=== PATIENT | male | born 1970 | race Caucasian/White ===

== ENCOUNTER → 2019-11-16 10:27 | Outpatient (BNVA) | payer MEDICARE, SELFPAY | PROVIDERS: Visit Provider Nurse Practitioner Family | DX: R10.9 Unspecified abdominal pain (principal); R39.9 Unspecified symptoms and signs involving the genitourinary system; I10 Essential (primary) hypertension; R35.1 Nocturia; R39.11 Hesitancy of micturition; J44.9 Chronic obstructive pulmonary disease, unspecified; F32.9 Major depressive disorder, single episode, unspecified; J30.2 Other seasonal allergic rhinitis; Z23 Encounter for immunization; F17.200 Nicotine dependence, unspecified, uncomplicated; G47.33 Obstructive sleep apnea (adult) (pediatric); Z12.11 Encounter for screening for malignant neoplasm of colon | CPT/HCPCS: 80053; 80061; 81003; 84153; 85025; 87086 ==

== ENCOUNTER → 2019-11-23 13:12 | Outpatient (BNVA) | payer MEDICARE, SELFPAY | PROVIDERS: PCP Nurse Practitioner Family; Visit Provider Anesthesiology | DX: G89.29 Other chronic pain (principal); M50.020 Cervical disc disorder with myelopathy, mid-cervical region, unspecified level; M48.02 Spinal stenosis, cervical region; M48.061 Spinal stenosis, lumbar region without neurogenic claudication; M54.16 Radiculopathy, lumbar region; M79.651 Pain in right thigh; M79.652 Pain in left thigh; F17.210 Nicotine dependence, cigarettes, uncomplicated; Z79.891 Long term (current) use of opiate analgesic; Z71.6 Tobacco abuse counseling | CPT/HCPCS: 99214 ==

== ENCOUNTER → 2019-12-28 14:57 | Outpatient (BNVA) | payer MEDICARE, SELFPAY | PROVIDERS: PCP Nurse Practitioner Family; Visit Provider Nurse Practitioner Family | DX: M25.552 Pain in left hip (principal) | CPT/HCPCS: 73502 ==

== ENCOUNTER 2019-12-30 12:36 | Outpatient (CLI) | payer MEDICARE, SELFPAY ==
--- NOTE | 2019-12-30 13:12 | MR_ITS ---
WS: [id number] MRI of the lumbar spine, with and without IV contrast, 12/30/2019 Clinical Data: Lumbar Pain Comparison: MRI lumbar spine, 03/16/2019. Findings: Degenerative disc narrowing at L5-S1 is seen. There is also disc narrowing at T12-L1. The spinal cord ends posterior to the T12 vertebral body. No compression fractures are seen. There is a left L5 lami nectomy unchanged. No abnormal contrast enhancement of any structure occurs. L1-L2: No canal stenosis, disc bulge or foraminal narrowing is seen. L2-L3: No canal stenosis, disc bulge or foraminal narrowing is seen. L3-L4: No canal stenosis, disc bulge or foraminal narrowing is seen. L4-L5: There is facet joint hypertrophy with a small central protruding disc causing canal and forami nal stenosis. L5-S1: There is a small central disc but the laminectomy relieves any central canal stenosis. MR/MR lumbar spine wo/w con [id number] Impression: 1. Degenerative disc narrowing at L5-S1 with left laminectomy. 2. Facet joint hypertrophy and central protruding disc causing mild canal and f oraminal stenosis at L4-L5.
--- NOTE | 2019-12-30 13:45 | XR_ITS ---
WS: [id number] Lumbar spine with flexion, extension, and neutral lateral, 12/30/2019 Clinical Data: Lumbar Pain Comparison: Lateral lumbar spine, 03/16/2019. Findings: No compression fractures or subluxation is seen. There is degenerative disc narrowing at L5-S1. Anter ior osteoarthritic change is seen at L4 and L5. No limitation of motion or subluxation is seen on flexion or extension.. There are clips in the right upper quadrant from a cholecystectomy. There are calcifications overlyin g the L3 vertebral body which may be in the kidney. There is a large amount of fecal material through out the colon. XR/XR lumbar spine f/e only [id number] Impression: 1. Negative for limitation of motion or subluxation on flexion or extension. 2. Osteoarthritis at L4-L5. 3. Degenerative disc at L5-S1.
== END 2019-12-30 12:37 | disposition home or self-care (01) ==
LOC: RADWPI 13:10
PROVIDERS: PCP Nurse Practitioner Family; Visit Provider Specialist
DX: M48.061 Spinal stenosis, lumbar region without neurogenic claudication (principal); M54.16 Radiculopathy, lumbar region; M47.897 Other spondylosis, lumbosacral region
CPT/HCPCS: 72120; 72158; A9579

== ENCOUNTER → 2020-01-23 10:46 | Outpatient (BNVA) | payer MEDICARE, SELFPAY | PROVIDERS: PCP Nurse Practitioner Family; Visit Provider Urology | DX: N40.0 Benign prostatic hyperplasia without lower urinary tract symptoms (principal) | CPT/HCPCS: 81001 ==

== ENCOUNTER → 2020-02-26 16:29 | Outpatient (BNVA) | payer MEDICARE, SELFPAY | PROVIDERS: PCP Nurse Practitioner Family; Visit Provider Nurse Practitioner | DX: M79.645 Pain in left finger(s) (principal) | CPT/HCPCS: 73130 ==

== ENCOUNTER → 2020-03-07 14:17 | Outpatient (BNVA) | payer MEDICARE, SELFPAY | PROVIDERS: PCP Nurse Practitioner Family; Visit Provider Nurse Practitioner | DX: G89.29 Other chronic pain (principal); M54.9 Dorsalgia, unspecified; M50.020 Cervical disc disorder with myelopathy, mid-cervical region, unspecified level; F17.210 Nicotine dependence, cigarettes, uncomplicated; Z79.891 Long term (current) use of opiate analgesic; Z71.6 Tobacco abuse counseling | CPT/HCPCS: 99213; 99214 ==

== ENCOUNTER → 2020-05-18 09:12 | Outpatient (BNVA) | payer MEDICARE, SELFPAY | PROVIDERS: PCP Nurse Practitioner Family; Visit Provider Nurse Practitioner | DX: G89.29 Other chronic pain (principal); M48.061 Spinal stenosis, lumbar region without neurogenic claudication; M54.16 Radiculopathy, lumbar region; M54.9 Dorsalgia, unspecified; M50.020 Cervical disc disorder with myelopathy, mid-cervical region, unspecified level; F17.210 Nicotine dependence, cigarettes, uncomplicated; Z79.891 Long term (current) use of opiate analgesic; Z71.6 Tobacco abuse counseling | CPT/HCPCS: 99213; 99214 ==

== ENCOUNTER → 2020-05-28 11:35 | Outpatient (BNVA) | payer MEDICARE, SELFPAY | PROVIDERS: PCP Nurse Practitioner Family; Visit Provider Nurse Practitioner Family | DX: I10 Essential (primary) hypertension (principal); J44.9 Chronic obstructive pulmonary disease, unspecified; J30.2 Other seasonal allergic rhinitis; F32.9 Major depressive disorder, single episode, unspecified; F17.200 Nicotine dependence, unspecified, uncomplicated; G47.33 Obstructive sleep apnea (adult) (pediatric); R39.11 Hesitancy of micturition; Z12.11 Encounter for screening for malignant neoplasm of colon; R73.9 Hyperglycemia, unspecified | CPT/HCPCS: 80053; 80061; 83036; 84443; 85025 ==

== ENCOUNTER → 2020-06-21 08:58 | Outpatient (BNVA) | payer MEDICARE, SELFPAY | PROVIDERS: PCP Nurse Practitioner Family; Visit Provider Nurse Practitioner Family | DX: R30.0 Dysuria (principal) | CPT/HCPCS: 81000 ==

== ENCOUNTER → 2020-07-18 07:52 | Outpatient (BNVA) | payer MEDICARE, SELFPAY | PROVIDERS: PCP Nurse Practitioner Family; Visit Provider Anesthesiology | DX: G89.29 Other chronic pain (principal); M50.020 Cervical disc disorder with myelopathy, mid-cervical region, unspecified level; M48.02 Spinal stenosis, cervical region; M54.9 Dorsalgia, unspecified; F17.210 Nicotine dependence, cigarettes, uncomplicated; Z98.890 Other specified postprocedural states; Z79.891 Long term (current) use of opiate analgesic; Z71.6 Tobacco abuse counseling | CPT/HCPCS: 99214 ==

== ENCOUNTER → 2020-08-07 11:56 | Outpatient (BNVA) | payer MEDICARE, SELFPAY | PROVIDERS: PCP Nurse Practitioner Family; Visit Provider Nurse Practitioner Family | DX: Z11.59 Encounter for screening for other viral diseases (principal) | CPT/HCPCS: 87635 ==

== ENCOUNTER → 2020-09-13 08:47 | Outpatient (BNVA) | payer MEDICARE, SELFPAY | PROVIDERS: PCP Nurse Practitioner Family; Visit Provider Anesthesiology | DX: G89.29 Other chronic pain (principal); M54.41 Lumbago with sciatica, right side; M54.9 Dorsalgia, unspecified; M48.061 Spinal stenosis, lumbar region without neurogenic claudication; M54.16 Radiculopathy, lumbar region; M50.020 Cervical disc disorder with myelopathy, mid-cervical region, unspecified level; M48.02 Spinal stenosis, cervical region; Z79.891 Long term (current) use of opiate analgesic; F17.210 Nicotine dependence, cigarettes, uncomplicated; Z71.6 Tobacco abuse counseling | CPT/HCPCS: 99214 ==

== ENCOUNTER → 2020-11-27 08:03 | Outpatient (BNVA) | payer MEDICARE, SELFPAY | PROVIDERS: PCP Nurse Practitioner Family; Visit Provider Anesthesiology | DX: G89.29 Other chronic pain (principal); M50.020 Cervical disc disorder with myelopathy, mid-cervical region, unspecified level; M48.02 Spinal stenosis, cervical region; M48.061 Spinal stenosis, lumbar region without neurogenic claudication; M54.16 Radiculopathy, lumbar region; M54.9 Dorsalgia, unspecified; F17.210 Nicotine dependence, cigarettes, uncomplicated; Z79.891 Long term (current) use of opiate analgesic | CPT/HCPCS: 99214 ==

== ENCOUNTER → 2021-01-23 08:55 | Outpatient (BNVA) | payer MEDICARE, SELFPAY | PROVIDERS: PCP Nurse Practitioner Family; Visit Provider Anesthesiology | DX: G89.29 Other chronic pain (principal); M54.9 Dorsalgia, unspecified; M48.061 Spinal stenosis, lumbar region without neurogenic claudication; M54.16 Radiculopathy, lumbar region; M48.02 Spinal stenosis, cervical region; M50.020 Cervical disc disorder with myelopathy, mid-cervical region, unspecified level; F17.210 Nicotine dependence, cigarettes, uncomplicated; Z98.890 Other specified postprocedural states; Z79.891 Long term (current) use of opiate analgesic | CPT/HCPCS: 99214 ==

== ENCOUNTER → 2021-03-28 13:54 | Outpatient (BNVA) | payer MEDICARE, SELFPAY | PROVIDERS: PCP Nurse Practitioner Family; Visit Provider Anesthesiology | DX: G89.29 Other chronic pain (principal); M54.41 Lumbago with sciatica, right side; M48.061 Spinal stenosis, lumbar region without neurogenic claudication; M54.16 Radiculopathy, lumbar region; M54.9 Dorsalgia, unspecified; M50.020 Cervical disc disorder with myelopathy, mid-cervical region, unspecified level; M48.02 Spinal stenosis, cervical region; F17.210 Nicotine dependence, cigarettes, uncomplicated; Z98.890 Other specified postprocedural states; Z79.891 Long term (current) use of opiate analgesic | CPT/HCPCS: 99214 ==

== ENCOUNTER → 2021-05-21 13:25 | Outpatient (BNVA) | payer MEDICARE, SELFPAY | PROVIDERS: PCP Nurse Practitioner Family; Visit Provider Anesthesiology | DX: G89.29 Other chronic pain (principal); M54.41 Lumbago with sciatica, right side; M48.02 Spinal stenosis, cervical region; M50.020 Cervical disc disorder with myelopathy, mid-cervical region, unspecified level; M48.061 Spinal stenosis, lumbar region without neurogenic claudication; M54.16 Radiculopathy, lumbar region; F17.210 Nicotine dependence, cigarettes, uncomplicated; Z98.890 Other specified postprocedural states; Z79.891 Long term (current) use of opiate analgesic | CPT/HCPCS: 99214 ==

== ENCOUNTER → 2021-05-27 10:01 | Outpatient (BNVA) | payer MEDICARE, SELFPAY | PROVIDERS: PCP Nurse Practitioner Family; Visit Provider Nurse Practitioner Family | DX: I10 Essential (primary) hypertension (principal) | CPT/HCPCS: 80053; 80061; 84443; 85025 ==

== ENCOUNTER → 2021-07-16 09:42 | Outpatient (BNVA) | payer MEDICARE, SELFPAY | PROVIDERS: PCP Nurse Practitioner Family; Visit Provider Anesthesiology | DX: G89.29 Other chronic pain (principal); M50.020 Cervical disc disorder with myelopathy, mid-cervical region, unspecified level; M48.02 Spinal stenosis, cervical region; M48.061 Spinal stenosis, lumbar region without neurogenic claudication; M54.16 Radiculopathy, lumbar region; F17.210 Nicotine dependence, cigarettes, uncomplicated; Z98.890 Other specified postprocedural states; Z79.891 Long term (current) use of opiate analgesic | CPT/HCPCS: 99214 ==

== ENCOUNTER → 2021-10-23 09:34 | Outpatient (BNVA) | payer MEDICARE, SELFPAY | PROVIDERS: PCP Nurse Practitioner Family; Visit Provider Anesthesiology | DX: G89.29 Other chronic pain (principal); Z20.822 Contact with and (suspected) exposure to COVID-19; M50.020 Cervical disc disorder with myelopathy, mid-cervical region, unspecified level; M48.02 Spinal stenosis, cervical region; M48.061 Spinal stenosis, lumbar region without neurogenic claudication; M54.16 Radiculopathy, lumbar region; Z98.890 Other specified postprocedural states | CPT/HCPCS: 87635; 99214 ==

== ENCOUNTER → 2021-10-29 16:15 | Outpatient (BNVA) | payer MEDICARE, SELFPAY | PROVIDERS: PCP Nurse Practitioner Family; Visit Provider Nurse Practitioner Family | DX: R52 Pain, unspecified (principal); R05.9 Cough, unspecified | CPT/HCPCS: 80053; 84443; 85025; 85379 ==

== ENCOUNTER → 2021-12-06 10:54 | Outpatient (BNVA) | payer MEDICARE, SELFPAY | PROVIDERS: PCP Nurse Practitioner Family; Visit Provider Nurse Practitioner Family | DX: I10 Essential (primary) hypertension (principal); R35.1 Nocturia; J30.2 Other seasonal allergic rhinitis; F32.9 Major depressive disorder, single episode, unspecified; J44.9 Chronic obstructive pulmonary disease, unspecified; Z20.822 Contact with and (suspected) exposure to COVID-19 | CPT/HCPCS: 80053; 80061; 84443; 85025; 87635 ==

== ENCOUNTER 2021-12-11 06:04 | Day surgery (SDC) | payer MEDICARE, SELFPAY ==
[2021-10-01 12:14] VITALS: BMI 27.4
[2021-12-06 09:41] VITALS: BMI 28.2
[2021-12-11 06:30] VITALS: BP 112/63; PULSE 87; RESP 18; TEMP 36.7; O2SAT 97
[2021-12-11] MEDS: sodium chloride 0.9% 1,000 ML 30 ML IV (06:40)
--- NOTE | 2021-12-11 06:54 | W.PM.OPSFHP ---
Same Day Surgery H&P Indication for Procedure/HPI DATE OF PROCEDURE: December 11, 2021 CHIEF COMPLAINT/INDICATIONFOR SURGICAL PROCEDURE: colonoscopy PREOP DIAGNOSIS: diagnostic PLANNED PROCEDURE: Operation Date: 12/11/21 07:30 Proposed Procedures p Colonoscopy 46337 z12.11(Not Applicable) - Javier Mills MD Medications/Allergies* Allergies/Adverse Reactions Allergy/AdvReac Type Severity Reaction Status Date / Time No Known Allergies Allergy Verified 12/06/21 10:57 Current Medications: Generic Name Dose Route Start Last Admin Trade Name Freq PRN Reason Stop Dose Admin Sodium Chloride 1,000 mls @ 30 mls/hr 12/11/21 06:15 12/11/21 06:40 Sodium Chloride 0.9% IV 12/12/21 06:14 30 mls/hr .Q24H ROBERT Administration Pertinent History/Comorbid Conditions* Medical History (Updated 03/07/20 @ 14:45 by RAINE Gusman) Anxiety BPH (benign prostatic hyperplasia) BPH w/o urinary obs/LUTS Cervical disc disorder with myelopathy, mid-cervical region, unspecified level Cervical stenosis of spine Chronic back pain greater than 3 months duration COPD (chronic obstructive pulmonary disease) DDD (degenerative disc disease) Depression Encounter for long-term opiate analgesic use Erectile dysfunction Essential hypertension Incomplete bladder emptying Nocturia Obstructive sleep apnea Seasonal allergies Spinal stenosis of lumbar region with radiculopathy Urinary urgency Surgical History (Updated 01/10/20 @ 12:59 by Sagar Alexander MD) History of cholecystectomy History of lumbar surgery Bilateral L5-S1 hemilaminotomy/discectomy/foraminotomy, 09/10/2016 Family History (Updated 10/10/19 @ 11:59 by Elisabeth Duvall LPN) CAD (coronary artery disease) Father Social History Smoking and tobacco status: current every day smoker cigarettes Packs smoked per day: 1 Quit status (tobacco): considering quitting Alcohol intake: never Lives independently: Yes Household members: spouse Marital status: Current occupational status: retired and disabled History of recent travel: No Pertinent Exam Findings alert, oriented x 3 and regular rate & rhythm Recommendations Surgery/Procedure today Coding Level of Care Code Acute Hospice Coordinator for Adinag Andreina
--- NOTE | 2021-12-11 06:57 | ANES.PREANE2 ---
Pre-Anesthetic Assessment Height/Weight: Height 1.68 m Weight 79.379 kg Temp Pulse Resp BP Pulse Ox 98.1 F 87 18 112/63 97 12/11/21 06:30 12/11/21 06:30 12/11/21 06:30 12/11/21 06:30 12/11/21 06:30 Preop Diagnosis: diagnostic Operation Date: 12/11/21 07:30 Proposed Procedures p Colonoscopy 62135 z12.11(Not Applicable) - Javier Mills MD Familial anesthetic complications: none Was Beta Poncho taken within 24 hours: N/A Was Clonidine taken within 24 hours: N/A Last intake: Intake Last Liquid Date 12/10/21 Last Liquid Time 23:30 Last Solid Date 12/10/21 Last Solid Time 07:00 Social Tobacco and No alcohol 1 pack(s) per day Exam alert, oriented x 3, clear to auscultation bilaterally and regular rate & rhythm Airway Submandibular: within normal limits Cervical ROM: within normal limits Mallampati: Class I Comments: Comments: missing Pulmonary Chronic Obstructive Pulmonary Disease, Exertional Dyspnea and Sleep Apnea CV/HEM Hypertension None reported Hepatic None reported GI None reported Metabolic None reported Musc/skel Lower Back Pain Neuropsych Anxiety Anesthetic Plan ASA status: 2 Anesthesia: MAC Risk of > 500 ml blood loss (7ml/kg in children): No Medications/Allergies Home Medications Medication Instructions Recorded Confirmed Last Taken Type albuterol sulfate 90 mcg/actuation 2 puff INHALATION Q6H PRN 30 Days 05/28/20 12/06/21 12/08/21 Rx aerosol inhaler (ProAir HFA) #6.7 gm compressor, for nebulizer #1 each 07/20/20 12/09/21 12/10/21 Rx nebulizer accessories #1 each 07/20/20 12/09/21 12/10/21 Rx Disposable nebulizer circuit #1 ea 10/22/21 12/09/21 12/10/21 Rx albuterol sulfate 2.5 mg (3 mL) INHALATION Q4H PRN 10/22/21 12/06/21 12/08/21 Rx 30 Days #75 ml oxycodone 15 mg tablet 15 mg PO TID PRN 30 Days #90 tab 10/23/21 12/06/21 12/08/21 Rx budesonide-formoterol HFA 160 2 puff INHALATION BID 30 Days #1 12/06/21 12/09/21 12/08/21 Rx mcg-4.5 mcg/actuation aerosol each inhaler (Symbicort) bupropion HCl 150 mg 24 hr tablet, 150 mg PO QAM 30 Days #30 tab 12/06/21 12/09/21 12/10/21 Rx extended release (Wellbutrin XL) lisinopril 20 mg tablet 20 mg PO DAILY 30 Days #30 tab 12/06/21 12/09/21 12/10/21 Rx montelukast 10 mg tablet 10 mg PO DAILY 30 Days #30 tab 12/06/21 12/09/21 12/10/21 Rx tamsulosin 0.4 mg capsule 0.4 mg PO BID 30 Days #60 cap 12/06/21 12/11/21 12/10/21 Rx prednisone 20 mg tablet 20 mg PO BID #6 tab 12/09/21 12/09/21 12/10/21 Rx Allergies Allergy/AdvReac Type Severity Reaction Status Date / Time No Known Allergies Allergy Verified 12/06/21 10:57 Current Medications Generic Name Dose Route Start Last Admin Trade Name Freq PRN Reason Stop Dose Admin Sodium Chloride 1,000 mls @ 30 mls/hr 12/11/21 06:15 12/11/21 06:40 Sodium Chloride 0.9% IV 12/12/21 06:14 30 mls/hr .Q24H ROBERT Administration PFSH Anesthesia Medical History Anxiety BPH (benign prostatic hyperplasia) BPH w/o urinary obs/LUTS Cervical disc disorder with myelopathy, mid-cervical region, unspecified level Cervical stenosis of spine Chronic back pain greater than 3 months duration COPD (chronic obstructive pulmonary disease) DDD (degenerative disc disease) Depression Encounter for long-term opiate analgesic use Erectile dysfunction Essential hypertension Incomplete bladder emptying Nocturia Obstructive sleep apnea Seasonal allergies Spinal stenosis of lumbar region with radiculopathy Urinary urgency Surgical History History of cholecystectomy History of lumbar surgery Bilateral L5-S1 hemilaminotomy/discectomy/foraminotomy, 09/10/2016 Family History Father CAD (coronary artery disease) Mother No problems noted. Social History Smoking and tobacco status: current every day smoker cigarettes Packs smoked per day: 1 Quit status (tobacco): considering quitting Alcohol intake: never Lives independently: Yes Household members: spouse Marital status: Current occupational status: retired and disabled History of recent travel: No Data Anesthesia Cardiac Studies: No Data to Display
[2021-12-11 07:51] VITALS: BP 90/60; PULSE 75; RESP 18; TEMP 36.2; O2SAT 92
--- NOTE | 2021-12-11 08:03 | ANE.PACU2 ---
Inpatient post-anesthesia follow up: Airway intact: Yes Vital signs: Temperature 97.2 F Pulse Rate 75 Respiratory Rate 18 Blood Pressure 90/60 Pulse Oximetry 92 Oxygen Delivery Me thod Room Air Oxygen Flow Rate Fraction of Inspir ed Oxygen Hydration adequate: Yes Nausea and vomiting: No Pain level: 1 Mental status: Baseline
[2021-12-11 08:10] VITALS: BP 104/68; PULSE 80; RESP 18; O2SAT 96
== END 2021-12-11 08:25 | disposition home or self-care (01) ==
PROVIDERS: PCP Nurse Practitioner Family; Visit Provider Surgery
PROC: 0DJD8ZZ Inspection of Lower Intestinal Tract, Via Natural or Artificial Opening Endoscopic (ICD-10-PCS; CPT 45378; principal; 2021-12-11 07:30)
DX: Z12.11 Encounter for screening for malignant neoplasm of colon (principal); K64.8 Other hemorrhoids; F41.9 Anxiety disorder, unspecified; N40.1 Benign prostatic hyperplasia with lower urinary tract symptoms; N13.8 Other obstructive and reflux uropathy; J44.9 Chronic obstructive pulmonary disease, unspecified; I10 Essential (primary) hypertension; G47.33 Obstructive sleep apnea (adult) (pediatric); F17.210 Nicotine dependence, cigarettes, uncomplicated
CPT/HCPCS: 45378; J2370; J2704; J7030

== ENCOUNTER → 2022-05-22 14:37 | Outpatient (BNVA) | payer MEDICARE, SELFPAY | PROVIDERS: PCP Nurse Practitioner Family; Visit Provider Nurse Practitioner Family | DX: I10 Essential (primary) hypertension (principal); N52.9 Male erectile dysfunction, unspecified; Z12.5 Encounter for screening for malignant neoplasm of prostate; R53.83 Other fatigue; R35.1 Nocturia; J44.9 Chronic obstructive pulmonary disease, unspecified; F32.9 Major depressive disorder, single episode, unspecified; J30.2 Other seasonal allergic rhinitis | CPT/HCPCS: 80053; 80061; 84403; 84443; 85025; G0103 ==

== ENCOUNTER 2022-06-16 15:49 | Outpatient (CLI) | payer MEDICARE, SELFPAY ==
--- NOTE | 2022-06-16 15:56 | XR_ITS ---
WS: [id number] XR ribs RT mn 3V w CXR1V [id number] REASON FOR EXAM: rib injury FINDINGS: The heart and mediastinum are within normal limits. Calcified granulomatous disease bilaterally. No right rib fractures are identified. XR/XR ribs RT mn 3V w CXR1V [id number] IMPRESSION: No acute abnormality.
--- NOTE | 2022-06-16 15:56 | XR_ITS ---
WS: [id number] XR shoulder RT min 2V* [id number] REASON FOR EXAM: right shoulder injury FINDINGS: No fracture or focal bone lesion. Mild changes of osteoarthritis in the acromioclavicular joint with mild joint space narrowing and sub chondral sclerosis and small marginal osteophytes. Mild narrowing of the joint space with mild subchondral sclerosis and cystic change in the glenoid. N o significant change compared to 01/04/2019. Compared to previous examination of 01/04/2019 there is incr eased sclerosis and subchondral cystic change in the rotator cuff tendon insertion on the greater tub erosity. XR/XR shoulder RT min 2V* [id number] IMPRESSION: Moderate rotator cuff tendon arthropathy which has progressed compared to the e xamination of 01/04/2019.
== END 2022-06-16 15:50 | disposition home or self-care (01) ==
LOC: RAD 15:51
PROVIDERS: PCP Nurse Practitioner Family; Visit Provider Emergency Medicine
DX: S49.91XA Unspecified injury of right shoulder and upper arm, initial encounter (principal); S29.9XXA Unspecified injury of thorax, initial encounter; X58.XXXA Exposure to other specified factors, initial encounter; M12.811 Other specific arthropathies, not elsewhere classified, right shoulder
CPT/HCPCS: 71101; 73030

== ENCOUNTER → 2022-09-09 07:48 | Outpatient (BNVA) | payer MEDICARE, SELFPAY | PROVIDERS: PCP Nurse Practitioner Family; Visit Provider Nurse Practitioner Family | DX: J44.9 Chronic obstructive pulmonary disease, unspecified (principal) | CPT/HCPCS: 80053 ==

== ENCOUNTER → 2022-09-23 14:49 | Outpatient (BNVA) | payer MEDICARE, SELFPAY | PROVIDERS: PCP Nurse Practitioner Family; Visit Provider Nurse Practitioner Family | DX: J06.9 Acute upper respiratory infection, unspecified (principal) | CPT/HCPCS: 87400 ==

== ENCOUNTER → 2022-11-18 10:02 | Outpatient (BNVA) | payer MEDICARE, SELFPAY | PROVIDERS: PCP Nurse Practitioner Family; Visit Provider Nurse Practitioner Family | DX: I10 Essential (primary) hypertension (principal); Z12.5 Encounter for screening for malignant neoplasm of prostate | CPT/HCPCS: 80053; 80061; 84443; 85025; G0103 ==

== ENCOUNTER → 2022-11-21 07:34 | Outpatient (BNVA) | payer MEDICARE, SELFPAY | PROVIDERS: PCP Nurse Practitioner Family; Visit Provider Urology | DX: N40.0 Benign prostatic hyperplasia without lower urinary tract symptoms (principal) | CPT/HCPCS: 51741; 51798; 81003; 99203 ==

== ENCOUNTER → 2023-01-01 14:31 | Outpatient (BNVA) | payer MEDICARE, SELFPAY | PROVIDERS: PCP Nurse Practitioner Family; Visit Provider Nurse Practitioner Family | DX: R05.9 Cough, unspecified (principal); Z20.822 Contact with and (suspected) exposure to COVID-19 | CPT/HCPCS: 87400; 87426 ==

== ENCOUNTER → 2023-06-12 11:53 | Outpatient (BNVA) | payer MEDICARE, SELFPAY | PROVIDERS: PCP Nurse Practitioner Family; Visit Provider Nurse Practitioner Family | DX: I10 Essential (primary) hypertension (principal); R52 Pain, unspecified; R05.9 Cough, unspecified; J44.9 Chronic obstructive pulmonary disease, unspecified | CPT/HCPCS: 71046; 80053; 80061; 84443; 85025 ==

== ENCOUNTER 2023-06-30 10:39 | Emergency (ER) | payer MEDICARE, SELFPAY ==
[2023-06-30 10:40] VITALS: BP 126/72; PULSE 88; RESP 14; TEMP 36.7; O2SAT 97; BMI 28.8
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
--- NOTE | 2023-06-30 10:57 | CT_ITS ---
WS: [id number] CT LUMBAR SPINE, noncontrast. HISTORY: injury; numbness/tingling bilateral LEs TECHNIQUE: Contiguous 2.0 mm axial imaging are performed. Sagittal and coronal reformats are submitte d and reviewed. All CT scans at [facility] use at least one of these dose optimization techni ques: automated exposure control; mA and/or kV adjustment per patient size (includes targeted exams w here dose is matched to clinical indication); or iterative reconstruction. IV contrast: None DLP: 577.57 mGy.cm COMPARISON: 04/29/2017 L4 retrolisthesis by 2 mm. New compression deformity involving the superior endplate of L2. Nondispla forest fracture lines are evident along the mid to superior L2 vertebral body without retropulsion. Comp ression fracture approximately 10%. Severe disc space narrowing at L5-S1 with circumferential osteoph ytes. L1-2: Normal. L2-3: No stenosis. L3-4: Mild annular disc bulging with mild facet and ligamentum flavum hypertrophy. Mild central and s ubarticular recess encroachment. L4-5: Diffuse annular disc bulging with osteophytic ridging. Disc encroaches upon the ventral thecal sac. Moderate facet and ligamentum flavum hypertrophy. Moderate to severe central and bilateral subar ticular recess encroachment. There is significant disc contact on the traversing L5 nerve roots. L5-S1: Marked osteophytic ridging around the vertebral bodies with mild disc space narrowing. Mild fa cet arthritis. Predominately osteophyte encroachment upon the ventral thecal sac, subarticular recess es and foramina. Mild central with moderate to severe bilateral subarticular recess and foraminal louis nosis. Encroachment upon both the L5 and S1 nerve roots. Partial fusion across the RIGHT SI joint. No destructive bone lesions. Hyperdense 5 mm mass in the superior medial LEFT kidney. Minimal change in size since 2017. Mild athe rosclerosis aorta. Nonobstructing calcification lower pole LEFT kidney. IMPRESSION: 1. Acute compression fracture L2. Loss of height and pop-off in the superior endplate by 10%. No retr opulsion. 2. L4-5: Moderate to severe central and bilateral subarticular recess encroachment. 3. L5-S1: Mild central with moderate to severe bilateral subarticular recess and foraminal stenosis. Stenosis predominately due to osteophytic ridging.
[2023-06-30] MEDS: dexamethasone 4 mg/mL INJ 8 MG IVP (11:14)
[2023-06-30 12:34] VITALS: RESP 19; O2SAT 98
[2023-06-30] MEDS: morphine 4 mg/mL SDV 1 mL IVP (12:34)
--- NOTE | 2023-06-30 14:22 | PC.SOCIAL ---
Ortho Referral Message sent to ortho clinic for referral appt. Clinic to contact patient with appt date/time.
== END 2023-06-30 13:12 | disposition home or self-care (01) ==
PROVIDERS: Emergency Provider Physician Assistant; PCP Nurse Practitioner Family
DX: S32.020A Wedge compression fracture of second lumbar vertebra, initial encounter for closed fracture (principal); M51.26 Other intervertebral disc displacement, lumbar region; F17.210 Nicotine dependence, cigarettes, uncomplicated; J44.9 Chronic obstructive pulmonary disease, unspecified; I10 Essential (primary) hypertension; X50.9XXA Other and unspecified overexertion or strenuous movements or postures, initial encounter
CPT/HCPCS: 72131; 96374; 96375; 99285; J1100; J2270

== ENCOUNTER → 2023-07-02 15:29 | Outpatient (BNVA) | payer MEDICARE, SELFPAY | PROVIDERS: PCP Nurse Practitioner Family; Referring Provider Physician Assistant; Visit Provider Physician Assistant | DX: S32.020A Wedge compression fracture of second lumbar vertebra, initial encounter for closed fracture (principal); X58.XXXA Exposure to other specified factors, initial encounter; M51.26 Other intervertebral disc displacement, lumbar region; M48.57XA Collapsed vertebra, not elsewhere classified, lumbosacral region, initial encounter for fracture; M43.16 Spondylolisthesis, lumbar region; Z46.89 Encounter for fitting and adjustment of other specified devices; S32.020D Wedge compression fracture of second lumbar vertebra, subsequent encounter for fracture with routine healing; X58.XXXD Exposure to other specified factors, subsequent encounter | CPT/HCPCS: 72040; 72100; 97760; 99203; L0456 ==

== ENCOUNTER 2023-07-02 16:37 | Outpatient (CLI) | payer MEDICARE, SELFPAY | END 2023-07-02 16:38 | disposition home or self-care (01) | LOC: SPT 16:37 | PROVIDERS: PCP Nurse Practitioner Family; Visit Provider Physician Assistant | DX: Z46.89 Encounter for fitting and adjustment of other specified devices (principal); S32.020D Wedge compression fracture of second lumbar vertebra, subsequent encounter for fracture with routine healing; X58.XXXD Exposure to other specified factors, subsequent encounter | CPT/HCPCS: 97760; L0456 ==

== ENCOUNTER 2023-07-17 11:36 | Outpatient (CLI) | payer MEDICARE, SELFPAY ==
--- NOTE | 2023-07-17 11:45 | MR_ITS ---
WS: [id number] MRI LUMBAR SPINE NONCONTRAST TECHNIQUE: Sagittal T1, T2 and STIR imaging. Axial T1 and T2 imaging. CLINICAL INFORMATION: L2 fracture COMPARISON: MRI 12/30/2019 FINDINGS: Mild lumbar curve. Compression fracture superior end plate with mild compression anterior wedging. Lo ss of approximately 20% vertebral body height. No significant retropulsion. Bone marrow edema extendi ng to the disc space consistent with acute to subacute compression. No other recent appearing davie sania fractures. L1-L2: Mild facet arthropathy. Spinal canal and foramen are patent. L2-L3: Mild annular bulging. Slight effacement of the ventral thecal sac. Mild arthropathy. Spinal ca nal and foramen are patent. L3-L4: Mild annular bulging. Slight effacement of ventral thecal sac. Moderate arthropathy. Spinal ca nal and foramen are patent. L4-L5: Mild annular bulging. Slight anterolisthesis. Moderate central canal stenosis. Impingement tra versing L5 nerve roots bilaterally. Moderate arthropathy. Foramen are patent. L5-S1: Disc osteophyte complex with endplate ridging. Shallow central protrusion with slight impingem ent traversing S1 nerve roots bilaterally. Mild central canal stenosis. Mild bilateral foraminal narr owing. Visualized pelvic bony structures: Normal. Paravertebral soft tissues: Normal. IMPRESSION: 1. Mild compression superior endplate L2 with edema consistent with recent compression. Loss of appr oximately 20% vertebral body height appears slightly progressed compared to the prior CT. No signific ant retropulsion. 2. Moderate central canal stenosis L4-5. 3. Mild central canal stenosis L5-S1. 4. Mild bilateral L5-S1 foraminal narrowing.
== END 2023-07-17 11:37 | disposition home or self-care (01) ==
PROVIDERS: PCP Nurse Practitioner Family; Visit Provider Physician Assistant
DX: S32.020A Wedge compression fracture of second lumbar vertebra, initial encounter for closed fracture (principal); X58.XXXA Exposure to other specified factors, initial encounter; M48.07 Spinal stenosis, lumbosacral region
CPT/HCPCS: 72148

== ENCOUNTER → 2023-07-21 09:41 | Outpatient (BNVA) | payer MEDICARE, SELFPAY | PROVIDERS: PCP Nurse Practitioner Family; Visit Provider Physician Assistant | DX: S32.020A Wedge compression fracture of second lumbar vertebra, initial encounter for closed fracture; M43.16 Spondylolisthesis, lumbar region; X58.XXXA Exposure to other specified factors, initial encounter | CPT/HCPCS: 36415; 80053; 81003; 85025; 99213 ==

== ENCOUNTER 2023-08-07 06:49 | Day surgery (SDC) | payer MEDICARE, SELFPAY ==
[2023-08-07] VITALS (13 sets, daily range): BP systolic 95–123; BP diastolic 56–73; PULSE 71–87; RESP 10–21; TEMP 36.1–36.3; O2SAT 94–98; BMI 31.1
--- NOTE | 2023-08-07 07:04 | SC_ITS ---
WS: [id number] C-ARM RADIOGRAPHS LUMBAR SPINE; 5 IMAGES HISTORY: L2 kyphoplasty COMPARISON: None available. Intraoperative imaging during kyphoplasty at L2. IMPRESSION: Intraoperative imaging during L2 kyphoplasty.
[2023-08-07] MEDS: sodium chloride 0.9% 1,000 ML 30 ML IV (07:15)
--- NOTE | 2023-08-07 07:35 | ANES.PREANE2 ---
Pre-Anesthetic Assessment Height/Weight: Height 1.65 m Temp Pulse Resp BP Pulse Ox O2 Del Method 97.1 F L 71 17 116/72 98 Room Air 08/07/23 07:03 08/07/23 07:03 08/07/23 07:03 08/07/23 07:03 08/07/23 07:03 08/07/23 07:05 Preop Diagnosis: L2 compression fracture Operation Date: 08/07/23 08:25 Proposed Procedures p L2 Kyphoplasty(Not Applicable) - Carlos Alberto Hernandez DO Familial anesthetic complications: None Was Beta Poncho taken within 24 hours: N/A Was Clonidine taken within 24 hours: N/A Last intake: Intake Last Liquid Date 08/06/23 Last Liquid Time 22:00 Last Solid Date 08/06/23 Last Solid Time 22:00 Social Tobacco and No alcohol Exam alert, oriented x 3, clear to auscultation bilaterally and regular rate & rhythm Airway Mallampati: Class I Dentition: other (no teeth) Pulmonary Chronic Obstructive Pulmonary Disease and Sleep Apnea (doesn't wear his CPAP) CV/HEM Hypertension Anesthetic Plan ASA status: 3 Anesthesia: General Risk of > 500 ml blood loss (7ml/kg in children): No Medications/Allergies Home Medications Medication Instructions Recorded Confirmed Last Taken Type compressor, for nebulizer #1 ea 07/20/20 07/21/23 12/10/21 Rx nebulizer accessories #1 ea 07/20/20 07/21/23 12/10/21 Rx Disposable nebulizer circuit #1 ea 10/22/21 07/21/23 12/10/21 Rx lisinopril 20 mg tablet 20 mg PO DAILY 30 days #30 tabs 06/12/23 08/07/23 08/06/23 22:00 Rx montelukast 10 mg tablet 10 mg PO DAILY 30 days #30 tabs 06/12/23 08/07/23 08/06/23 22:00 Rx tamsulosin 0.4 mg capsule 0.4 mg PO BID 30 days #60 caps 06/12/23 08/07/23 08/06/23 22:00 Rx TLSO Brace #1 ea 07/02/23 07/21/23 Unknown Rx hydrocodone 5 mg-acetaminophen 325 1 tab PO .q 4-6 PRN pain 5 days 08/05/23 08/07/23 08/06/23 22:00 Rx mg tablet #30 tabs sildenafil 50 mg tablet (Viagra) 50 mg PO DAILY 08/07/23 08/07/23 Unknown History Allergies Allergy/AdvReac Type Severity Reaction Status Date / Time No Known Allergies Allergy Verified 08/07/23 06:59 Current Medications Generic Name Dose Route Start Last Admin Trade Name Catrachita PRN Reason Stop Dose Admin Sodium Chloride 1,000 mls @ 30 mls/hr 08/07/23 07:15 08/07/23 07:15 Sodium Chloride 0.9% IV 08/08/23 07:14 30 mls/hr .Q24H ROBERT Administration PFSH Anesthesia Medical History Anxiety BPH (benign prostatic hyperplasia) BPH w/o urinary obs/LUTS Cervical disc disorder with myelopathy, mid-cervical region, unspecified level Cervical stenosis of spine Chronic back pain greater than 3 months duration COPD (chronic obstructive pulmonary disease) DDD (degenerative disc disease) Depression Encounter for long-term opiate analgesic use Erectile dysfunction Erectile dysfunction Essential hypertension Incomplete bladder emptying Nocturia Obstructive sleep apnea Seasonal allergies Spinal stenosis of lumbar region with radiculopathy Urinary urgency Surgical History History of cholecystectomy History of lumbar surgery Bilateral L5-S1 hemilaminotomy/discectomy/foraminotomy, 09/10/2016 Status post colonoscopy (12/11/21) normal Family History Father , AT AGE 42 CAD (coronary artery disease) Liver disease Mother No problems noted. Social History Smoking and tobacco/nicotine status: current every day tobacco/nicotine user cigarettes Packs smoked per day: 1 Quit status (tobacco/nicotine): considering quitting Alcohol intake: current Alcohol intake frequency: few times a month Substance/Drug Use: never Lives independently: Yes Household members: spouse Marital status: Current occupational status: retired and disabled Data Anesthesia Cardiac Studies: No Data to Display
[2023-08-07] MEDS: fentaNYL 50 mcg/mL INJ 2mL IVP ×2 (08:04→09:33)
--- NOTE | 2023-08-07 08:08 | W.PM.OPSUD ---
Surgery/Procedure H&P Update DATE OF PROCEDURE: August 07, 2023 DATE H&P PERFORMED: 07/31/23 H&P UPDATE INFORMATION: I have reviewed H&P completed within last 30 days, I have examined patient prior to procedure and No changes to prior documentation PREOP DIAGNOSIS: L2 compression fracture PLANNED PROCEDURE: Operation Date: 08/07/23 08:25 Proposed Procedures p L2 Kyphoplasty(Not Applicable) - Carlos Alberto Hernandez DO
[2023-08-07] MEDS: ceFAZolin 2,000 MG in sodium chloride 0.9% (plus) 50 ML 100 MG IV (08:20)
[2023-08-07] MEDS: lidocaine-epi 1% PF 1:200,000 30 mL SDV INJECTION (08:48)
[2023-08-07] MEDS: iohexol 300 mg/mL 50 mL Btl 15 ML XX (08:50)
--- NOTE | 2023-08-07 09:24 | PM.OP ---
Operative Report Date of procedure: August 07, 2023 Pre-op diagnosis: L2 wedge osteoporotic compression fracture Post-op diagnosis: same Procedure done: L2 kyphoplasty Surgeon: Carlos Alberto Hernandez DO Estimated blood loss (mL): 5 Procedure: L2 kyphoplasty Patient is brought to the operative suite after Is used this in the prone position. All areas impingement well-padded. Patient's prepped draped normal sterile fashion biplanar fluoroscopy was brought in identified the L2 fracture. 2 incisions were made on the right and left side. The awl was inserted into the pedicles bilaterally using biplanar fluoroscopy the drill was then inserted bilaterally. Followed by the balloon bilaterally. Then the cement was injected following the cement on AP and lateral fluoroscopy the vertebrae had good fill. The tubes were removed AP lateral fluoroscopy ensured the cement was in good position. Wounds were irrigated closed with nylon suture sterile dressings were applied. Patient was then transferred to PACU in stable condition.
--- NOTE | 2023-08-07 09:50 | ANE.PACU2 ---
Inpatient post-anesthesia follow up: Airway intact: Yes Vital signs: Temperature 97.1 F Pulse Rate 80 Respiratory Rate 17 Blood Pressure 103/60 Pulse Oximetry 94 Oxygen Delivery Me thod Room Air Oxygen Flow Rate Fraction of Inspir ed Oxygen Hydration adequate: Yes Nausea and vomiting: No Pain level: 1 Mental status: Baseline
[2023-08-07] MEDS: HYDROcodone-acetaminophen 5-325 mg Tablet 1 TAB PO (10:18)
== END 2023-08-07 10:37 | disposition home or self-care (01) ==
PROVIDERS: PCP Nurse Practitioner Family; Visit Provider Orthopaedic Surgery
PROC: (CPT 22514; principal; 2023-08-07 08:15)
DX: S32.020A Wedge compression fracture of second lumbar vertebra, initial encounter for closed fracture (principal); X58.XXXA Exposure to other specified factors, initial encounter; J44.9 Chronic obstructive pulmonary disease, unspecified; I10 Essential (primary) hypertension; F41.9 Anxiety disorder, unspecified; N40.1 Benign prostatic hyperplasia with lower urinary tract symptoms; N13.8 Other obstructive and reflux uropathy; Z79.891 Long term (current) use of opiate analgesic; G47.33 Obstructive sleep apnea (adult) (pediatric); F17.210 Nicotine dependence, cigarettes, uncomplicated
CPT/HCPCS: 22514; 76000; J0690; J1100; J2405; J2704; J3010; J3490; J7030; Q9967

== ENCOUNTER → 2023-08-18 13:03 | Outpatient (BNVA) | payer MEDICARE, SELFPAY | PROVIDERS: PCP Nurse Practitioner Family; Visit Provider Orthopaedic Surgery | DX: Z47.89 Encounter for other orthopedic aftercare (principal) | CPT/HCPCS: 99024; 99212 ==

== ENCOUNTER → 2023-11-16 11:37 | Outpatient (BNVA) | payer MEDICARE, SELFPAY | PROVIDERS: PCP Nurse Practitioner Family; Visit Provider Nurse Practitioner Family | DX: J43.9 Emphysema, unspecified (principal); I10 Essential (primary) hypertension | CPT/HCPCS: 71046; 80053; 80061; 84443; 85025 ==

== ENCOUNTER → 2024-01-13 15:35 | Outpatient (BNVA) | payer MEDICARE, SELFPAY | PROVIDERS: PCP Nurse Practitioner Family; Visit Provider Nurse Practitioner Family | DX: N20.0 Calculus of kidney (principal) | CPT/HCPCS: 80053; 81000; 85025; G0103 ==

== ENCOUNTER 2024-02-04 10:02 | Outpatient (CLI) | payer MEDICARE, SELFPAY ==
--- NOTE | 2024-02-04 10:00 | CTR_ITS ---
PROCEDURE INFORMATION: Exam: CT Abdomen And Pelvis Without Contrast Exam date and time: 02/04/2024 10:30 AM Age: 53 years old Clinical indication: Other: Bilateral flank pain; Prior surgery; Surgery date: 6+ months; Surgery type: Gallbladder, back; Additional info: N20.0 - calculus of kidney, stone protocol TECHNIQUE: Imaging protocol: Computed tomography of the abdomen and pelvis without contrast. Radiation optimization: All CT scans at this facility use at least one of these dose optimization techniques: automated exposure control; mA and/or kV adjustment per patient size (includes targeted exams where dose is matched to clinical indication); or iterative reconstruction. COMPARISON: CT pelvis wo con [id number] 04/30/2017 1:19 AM RADIATION DOSE METRICS: Total DLP (mGy-cm): 355.29 FINDINGS: Lungs: Lung bases are clear. No pleural effusion. Liver: Normal. No mass. Gallbladder and bile ducts: The gallbladder has been resected. Pancreas: Normal. No ductal dilation. Spleen: Normal. No splenomegaly. Adrenal glands: Normal. No mass. Kidneys and ureters: A 2.3 cm staghorn calculus involves the lower pole of the left kidney. No evidence of ureteral stone or dilatation. 2 mm stone in the right kidney. Stomach and bowel: Unremarkable. No obstruction. No mucosal thickening. Appendix: No evidence of appendicitis. Intraperitoneal space: Unremarkable. No free air. No significant fluid collection. Vasculature: Unremarkable. No abdominal aortic aneurysm. Lymph nodes: Unremarkable. No enlarged lymph nodes. Urinary bladder: Unremarkable as visualized. Reproductive: The prostate gland is abnormally enlarged. Bones/joints: The bony structures demonstrate diffuse osteopenia. Soft tissues: Unremarkable. CT/CT kidney stone [id number] IMPRESSION: 1. Staghorn calculus left kidney 2. Tiny right renal stone 3. Prostate enlargement
== END 2024-02-04 10:03 | disposition home or self-care (01) ==
LOC: RAD 10:03
PROVIDERS: PCP Nurse Practitioner Family; Visit Provider Nurse Practitioner Family
DX: N20.0 Calculus of kidney (principal); N40.0 Benign prostatic hyperplasia without lower urinary tract symptoms
CPT/HCPCS: 74176

== ENCOUNTER → 2024-08-23 13:05 | Outpatient (BNVA) | payer MEDICARE, SELFPAY | PROVIDERS: PCP Nurse Practitioner Family; Visit Provider Nurse Practitioner Family | DX: J44.9 Chronic obstructive pulmonary disease, unspecified (principal); J43.9 Emphysema, unspecified | CPT/HCPCS: 71046 ==

== ENCOUNTER 2024-09-05 09:13 | Outpatient (CLI) | payer MEDICARE, SELFPAY | END 2024-09-05 09:14 | disposition home or self-care (01) | LOC: RT 09:15 | PROVIDERS: PCP Nurse Practitioner Family; Visit Provider Nurse Practitioner Family | DX: J43.9 Emphysema, unspecified (principal) | CPT/HCPCS: 94010; 94726; 94729 ==

== ENCOUNTER 2024-09-12 17:08 | Outpatient (CLI) | payer MEDICARE, SELFPAY ==
--- NOTE | 2024-09-12 17:11 | CTR_ITS ---
PROCEDURE INFORMATION: Exam: CT Chest With Contrast; Diagnostic Exam date and time: 09/12/2024 5:19 PM Age: 53 years old Clinical indication: Condition or disease; Lung condition and disease; Emphysema; Type not specified; Additional info: J43.9 - emphysema, unspecified TECHNIQUE: Imaging protocol: Diagnostic computed tomography of the chest with contrast. Radiation optimization: All CT scans at this facility use at least one of these dose optimization techniques: automated exposure control; mA and/or kV adjustment per patient size (includes targeted exams where dose is matched to clinical indication); or iterative reconstruction. Contrast material: OMNI 350; Contrast volume: 100 ml; Contrast route: INTRAVENOUS (IV); COMPARISON: CR XR chest 2V* [id number] 08/23/2024 1:07 PM RADIATION DOSE METRICS: Total DLP (mGy-cm): 406.57 FINDINGS: Lungs: 3 mm solid noncalcified nodule near the lateral minor fissure. No other significant pulmonary abnormality identified. Pleural spaces: Unremarkable. No pneumothorax. No pleural effusion. Heart: Unremarkable. No cardiomegaly. No pericardial effusion. Coronary arteries: Tiny amount of coronary artery calcification. Lymph nodes: Mild multifocal mediastinal and bilateral pulmonary hilar lymphadenopathy. No other lymphadenopathy. No lymphadenopathy. Vasculature: Unremarkable. No aortic aneurysm. Liver: Possible diffuse fatty infiltration of the liver, although this appearance may be due to the phase of contrast administration. Gallbladder and biliary ducts: Cholecystectomy. Kidneys: Tiny nonobstructing calculus visualized right kidney. Tiny nonobstructing calculus visualized left kidney. Tiny cortical cysts left kidney needs no follow-up. Bones/joints: Mild scoliosis. Mild multilevel spondylosis. Compression deformity of the L2 vertebral body containing osteoplasty cement is partially in the field of view. This is probably chronic. However, if there is a history of current or recent trauma here, then this could be acute or subacute. If so, please correlate with history and point tenderness here on physical examination. Otherwise, unremarkable. Soft tissues: Otherwise, unremarkable visualized body wall. Otherwise, unremarkable soft tissues. Other findings: Otherwise, unremarkable visualized upper abdominal structures. CT/CT chest w con* [id number] IMPRESSION: 1. 3 mm solid noncalcified nodule near the lateral minor fissure. For patients at low risk (minimal or absent history of smoking and of other known risk factors), no routine follow-up is indicated. For patients at high risk (history of smoking or of other known risk factors), consider optional CT Chest at 12 months. (Reference: Koby) 2. No other significant pulmonary abnormality identified. 3. Compression deformity of the L2 vertebral body containing osteoplasty cement is partially in the field of view. This is probably chronic. However, if there is a history of current or recent trauma here, then this could be acute or subacute. If so, please correlate with history and point tenderness here on physical examination. 4. Possible diffuse fatty infiltration of the liver, although this appearance may be due to the phase of contrast administration. 5. Mild multifocal mediastinal and bilateral pulmonary hilar lymphadenopathy. This is probably reactive, but less likely could be neoplastic. 6. Additional details as above. COMMENTS: Consistent with the [employer]'s Incidental Findings Committee white paper (J Am Scout Radiol 2018): Any incidental renal lesion less than 1 cm or classified as too small to characterize, or any incidental cystic renal lesion characterized as simple-appearing, is likely benign. No follow-up imaging is recommended for these lesions per consensus recommendations based on imaging criteria. REFERENCES: Koby Cox, et al. Guidelines for Management of Incidental Pulmonary Nodules Detected on CT Images: From the [employer] 2017. Radiology. 2017;284(1):228-243.
[2024-09-12] MEDS: iohexol 350 mg/mL 500 mL Btl (per mL) IV (17:29)
== END 2024-09-12 17:09 | disposition home or self-care (01) ==
LOC: RAD 17:09
PROVIDERS: PCP Nurse Practitioner Family; Visit Provider Nurse Practitioner Family
DX: R91.1 Solitary pulmonary nodule (principal); J43.9 Emphysema, unspecified; S32.020A Wedge compression fracture of second lumbar vertebra, initial encounter for closed fracture; Z90.49 Acquired absence of other specified parts of digestive tract; N20.0 Calculus of kidney; N28.1 Cyst of kidney, acquired; R06.00 Dyspnea, unspecified; X58.XXXA Exposure to other specified factors, initial encounter
CPT/HCPCS: 71260

== ENCOUNTER → 2025-06-12 10:01 | Outpatient (BNVA) | payer MEDICARE, SELFPAY | PROVIDERS: PCP Nurse Practitioner Family; Visit Provider Nurse Practitioner Family | DX: I10 Essential (primary) hypertension (principal); J44.9 Chronic obstructive pulmonary disease, unspecified | CPT/HCPCS: 80053; 80061; 84443; 85025 ==